=== PATIENT | female | born 1990 | race Caucasian/White ===

== ENCOUNTER 2025-02-16 14:20 | Outpatient (AMB) | payer OTHER, SELFPAY ==
[2025-02-16 14:31] VITALS: BP 132/76; PULSE 95; O2SAT 98; BMI 58.2
--- NOTE | 2025-02-16 14:31 | MHC.OFFVIS ---
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 Genetic testing confirmed the diagnosis, although records were not available during the visit. Obesity became a concern following the onset of menarche at age [age], prior to which the patient experienced failure to thrive. Various dietary interventions have been attempted, including reducing sugar and carbohydrates, with the patient actively preparing her own meals. Despite these efforts, weight management remains challenging, with no pharmacological interventions attempted due to insurance limitations. The patient engages in regular physical activity, including walking to work and participating in a music academy. She reports easy bruising, stretch weston, and muscular weakness, with a sleep study scheduled to evaluate suspected sleep apnea. The patient follows a diet with reduced sugar and carbohydrates, preparing her own meals to avoid processed foods. She consumes a diet rich in salads and vegetables, and has met with a certified performance technologist in the past who commended her dietary habits. [facility] Medical History (Updated 02/16/25 @ 14:48 by Lee Sandoval MD) Obesity Surgical History Hx of eye surgery Family History Maternal Grandfather Coronary artery disease Maternal Grandmother Arthritis CAD (coronary atherosclerotic disease) Asthma History of hypertension Paternal Grandfather CAD (coronary atherosclerotic disease) History of hypertension Stroke Sister Asthma Mother Fibromyalgia Asthma Heart murmur History of hypertension Cornea transplant recipient Social History Alcohol intake: never Patient Tobacco Use Status: Never used Tobacco Physical Exam Vital Signs: Last Vital Signs Pulse 95 02/16/25 14:31 BP 132/76 02/16/25 14:31 Pulse Ox 98 02/16/25 14:31 Oxygen Delivery Method Room Air 02/16/25 14:31 BMI result Body Mass Index 58.2 Const Other: Thyroid gland is normal size weighs about 15 g. There are no cushingoid features Assessment & Plan Assessment & Plan (1) Obesity: Code(s): E66.9 - Obesity, unspecified Category: Medical Plan: 1. Obesity The patient has struggled with weight management since menarche at age [age], despite dietary interventions and regular physical activity. No pharmacological treatments have been attempted due to insurance limitations. A comprehensive approach including dietary management and potential pharmacotherapy should be considered, pending insurance approval. I attempted to prescribe Zepbound 2.5 mg Q weekly. Went over side effects is it band including but not limited to nausea, vomiting and rare risk of pancreatitis 2. 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 Continued monitoring of associated symptoms and regular follow-up with genetic counseling is recommended. 3. Suspected sleep apnea The patient reports snoring and has a scheduled sleep study to evaluate for sleep apnea. Further management will depend on the results of the sleep study. During the visit, we discussed the challenges of managing obesity in the context of Elia syndrome, emphasizing the importance of dietary management and the potential for pharmacotherapy, pending insurance approval. We also reviewed the patient's history of Elia syndrome and the need for ongoing monitoring. The patient was informed about the upcoming sleep study to evaluate for sleep apnea, and the importance of follow-up based on the results was highlighted. The patient had an opportunity to ask questions regarding treatment plan. The patient expressed understanding and agreement with the above treatment plan. Patient was informed and verbally consented to the use of an ambient scribe for clinic note documentation during this visit. Orders: Referrals Endocrinology Referral E66.9 - Obesity, unspecified Nutrition/Dietitian Referral E66.9 - Obesity, unspecified Medications: New tirzepatide (weight loss) (Zepbound) for 4 weeks 2.5 mg (0.5 mL) subcut QWEEK 2 mL 5RF Coding Level of Care Code New Pt Level 4 (48567) Diagnoses Obesity E66.9
== END 2025-02-16 15:25 | disposition home or self-care (01) ==
LOC: HO.ENCR 14:21
PROVIDERS: PCP Nurse Practitioner Family; Visit Provider Internal Medicine Endocrinology, Diabetes & Metabolism
DX: E66.9 Obesity, unspecified (principal)
CPT/HCPCS: 99204

== ENCOUNTER → 2025-02-16 14:20 | Outpatient (BNVA) | payer OTHER, SELFPAY | PROVIDERS: PCP Nurse Practitioner Family; Visit Provider Internal Medicine Endocrinology, Diabetes & Metabolism | DX: Q93.82 Williams syndrome (principal); E66.9 Obesity, unspecified | CPT/HCPCS: 99202 ==